=== PATIENT | male | born 1990 | race Caucasian/White ===

== ENCOUNTER 2025-01-04 13:20 | Emergency (ER) | payer OTHER, SELFPAY ==
[2025-01-04 13:22] VITALS: BP 160/93
--- NOTE | 2025-01-04 14:11 | ED.SKININJ ---
HPI-Injury
General
Chief Complaint: Bite
Source: patient and spouse
Time Seen by Provider: 01/04/25 13:59
History of Present Illness-Injury
Initial Injury comments:
34-year-old male states that he went to go visit a friend, dog came outside and bit him first in the right thigh and then the right hand area. He is up-to-date on his tetanus. Dog is up-to-date on immunizations. Patient wash the wounds out and
dressed them before arriving here. He denies numbness, tingling, weakness, drainage, or other complaints.
Past History
Past History
ED Past Medical History: None
ED Past Surgical History: None
Social History
Tobacco: Non-smoker
Alcohol: Occasional
Drug: None
Personal:
Living: with family
Phy Exam
Physical Exam
Physical Exam:
GENERAL: Alert , in no apparent distress
EYE: pupils equal and reactive
NECK: Supple, no significant adenopathy.
ENT: o/p clr, mmm.
CARDIAC: Regular rate and rhythm .
LUNGS: Clear breath sounds bilaterally, no acute respiratory distress, no wheezes/rales/rhonchi
ABDOMEN: Soft, without focal tenderness, no r/g
NEUROLOGICAL: Alert and oriented, no focal neuro deficits
SKIN: Warm and dry, there is a 2 cm S shaped superficial lac noted at R thenar eminence, no evidence of tendon/joint injury, examined through FROM, sens intact, motor intact, no fb noted (pt denies suspicion of fb or fb sensation). There are
linear X3 superficial abrasions dorsal aspect R hand. There is a 1 cm superficial lac to medial distal thigh are to level of superfic fat, no muscle/tendon/joint inj noted, FROM, nvit.
MUSCULOSKELETAL: No edema, well perfused.
PSYCH: Normal and appropriate interaction.
Course
Orders/Labs/Results
Orders:
Orders
01/04/25 14:10
Amoxicillin 875 mg/Clav 125 mg [Augmentin 875 mg/125 mg] 1 tablet PO NOW STA
Vital Signs
Initial and Last Documented VS:
Initial Vital Signs
Temp Pulse Resp BP Pulse Ox
98.3 F 85 18 160/93 98
01/04/25 13:22 01/04/25 13:22 01/04/25 13:22 01/04/25 13:22 01/04/25 13:22
Last Documented Vital Signs
Temp Pulse Resp BP Pulse Ox
98.3 F 85 18 160/93 98
01/04/25 13:22 01/04/25 13:22 01/04/25 13:22 01/04/25 13:22 01/04/25 14:15
*Pulse Oximetry
SaO2: 98
Oxygen Mode of Delivery: Room air
Patient hypoxic: no
*Critical Care Note
Total Time (30-74mins, 75-104mins- exclusive of procedures): Not Applicable
Update Note
Update Note:
Patient presents to the Emergency Department with dog bite
Number and Complexity of Problems Addressed at the Encounter
� Chronic conditions affecting care:
� Acute Exacerbation and/or Progression of Chronic Illness:
� Differential Diagnosis includes: But not limited to tendon injury, joint injury, retained foreign body, laceration, tetanus exposure, rabies exposure, etc. etc.
Amount and/or Complexity of Data to be Reviewed and Analyzed
� I performed an independent evaluation of and my interpretation is:
EKG:
CT:
Xrays:
Laboratory Studies:
Other:
� Review of other/old records reveals:
� Clinical information was obtained by an independent historian: Perri who confirms that he has an up-to-date tetanus that
� Prescriptions/Medications Considered but not given:
� Further testing considered but not performed:
Risk of Complications and/or Morbidity or Mortality of Patient Management
� Social determinants of health affecting care:
� Discussion with other providers (PCP, Hospitalists, Consultants, etc):
� Escalation of care including admission/observation vs risk of discharge considered: Area was extensively cleaned by our staff here. I then applied a Steri-Strip over the wounds loosely, without approximating the edges, to
serve as a dressing. I repeatedly emphasized the importance of wound inspection and care, follow-up, and is not bringing the edges together but allowing wound to heal by secondary intention. 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
clean and covered. Antibiotic started here and called in. Discussed with patient portance of follow-up and reasons to return to the ER.
ED Attending Note
-
Portions of this chart may have been created with voice recognition software.� Occasional wrong word or��sound alike� substitutions may have occurred due to the inherent limitations of voice recognition software.
Discharge Plan
Departure
Patient Disposition: Home (Routine Discharge)
Date of Disposition: 01/04/25
Time of Disposition: 14:22
Patient with high blood pressure during this ER visit?: Yes
Condition: Good
Discharge Problem:
Dog bite
Instructions: Animal Bites (DC), Caring for an open wound, BLOOD PRESSURE
Prescriptions:
New
amoxicillin-pot clavulanate 875-125 mg tablet
1 tab PO BID Qty: 10 0RF
Activity Restrictions/Additional Instructions:
PLEASE MONITOR YOUR WOUNDS CLOSELY FOR SIGNS OF INFECTION. IF YOU DEVELOP FEVER, DRAINAGE, REDNESS, WARMTH, SWELLING, INCREASING/NEW PAIN, OR OTHER WORRIOSME SIGNS, GO TO THE ER IMMEDIATELY!
Interventions
Interventions:
*General Assessment Last Done: 01/04/25 13:22
*Neglect/Abuse Screening Last Done: 01/04/25 13:22
ED-Skin Assessment Last Done: 01/04/25 14:04
Discharge Date and Time
Print Language: SAMI
[2025-01-04] MEDS: AUGMENTIN 875 MG/125 MG 1 TABLET PO (14:15)
== END 2025-01-04 15:08 | disposition home or self-care (01) ==
LOC: EMR 13:20
PROVIDERS: EMERGENCY PHYSICIAN Emergency Medicine; FAMILY PHYSICIAN Internal Medicine
DX: S71.111A Laceration without foreign body, right thigh, initial encounter (principal); S60.511A Abrasion of right hand, initial encounter; W54.0XXA Bitten by dog, initial encounter
CPT/HCPCS: 99283